=== PATIENT | female | born 1950 | race Caucasian/White ===

== ENCOUNTER 2020-07-21 13:40 | Observation (INO) | payer MEDICARE, SELFPAY ==
[2020-07-21] VITALS (8 sets, daily range): BP systolic 107–141; BP diastolic 79–95; PULSE 97–129; RESP 18–26; TEMP 36–36.7; O2SAT 93–96; BMI 52.2
--- NOTE | ~2020-07-21 | CT_ITS ---
EXAMINATION: CT abdomen pelvis w con INDICATION: Abdominal pain TECHNIQUE: Computed tomographic images of the abdomen and pelvis were obtained after the administrati on of 100 cc of Omnipaque 350 intravenous contrast. The dose-length product (DLP) was 1653.75 mGy-cm. Automated exposure control and iterative reconstruction technique were employed. COMPARISON: 03/23/2019 FINDINGS: Stable nodules of the visualized lung bases are consistent with old granulomatous disease. The heart size is normal. There is an ill-defined mass involving most of liver segment IV measuring u p to 7.1 x 7.4 cm in axial dimension and 9.9 cm in craniocaudal dimension. The most cranial portions of the mass are exophytic at the liver surface. The gallbladder is ill-defined and appears to be cont iguous with the mass. Portions of the mass appear to at least abut the distal stomach and first porti on of the duodenum. There is a moderate volume of ascites. Punctate calcifications in an otherwise no rmal spleen likely represent healed granulomatous disease. The pancreas and right adrenal gland are n ormal. There is chronic thickening of the left adrenal gland which maintains its adreniform shape. Hy poattenuating lesions in the kidneys, measuring up to 2 mm on the left, are too small to characterize but likely represent cysts. There is mild periportal lymphadenopathy. Colonic diverticulosis is pres ent without evidence of diverticulitis. There is no free intraperitoneal gas or evidence of bowel obs truction. There is moderate lumbar spondylosis. There is moderate osteoarthritis of the hips. IMPRESSION: 1. Large mass involving much of liver segment IV and contiguous with the gallbladder fossa, distal st omach, and first portion of the duodenum. Differential includes liver abscess versus malignancy, poss ibly arising from the gallbladder. 2. Moderate volume of ascites. These findings were discussed with KAUSHIK Sylvester in the Emergency Department at 1720 hours on 07/21. Reviewed, dictated and finalized at location A. IR TABLE OPERATOR IMPRESSION: 1. Large mass involving much of liver segment IV and contiguous with the gallbl adder fossa, distal stomach, and first portion of the duodenum. Differential in cludes liver abscess versus malignancy, possibly arising from the gallbladder. 2. Moderate volume of ascites. These findings were discussed with KAUSHIK Sylvester in the Emergency Departmen t at 1720 hours on 07/21/2020.
--- NOTE | ~2020-07-21 | XR_ITS ---
EXAMINATION: XR chest 1V portable INDICATION: Atrial fibrillation, COPD and hypertension TECHNIQUE: Portable AP chest at 2030 hours COMPARISON: 10/05/2017 FINDINGS: The lungs are free of acute opacities. There is no pleural effusion or pneumothorax. The ca rdiomediastinal silhouette is normal. There is moderate osteoarthritis of the shoulders. IMPRESSION: 1. No acute cardiopulmonary abnormality. Reviewed, dictated and finalized at location A. BLADE POLISHER
[2020-07-21 14:16] LABS: Basophils Absolute Auto 0.1 K/mm3 (0.0-0.1); Basophils Percent Auto 0.4 % (0.2-1.2); Eosinophils Absolute Auto 0.1 K/mm3 (0-0.3); Eosinophils Percent Auto 0.6 % (0-4.4); Hematocrit 45.8 % (37.0-47.0); Immature Granulocyte Absolute 0.07 K/mm3 (0.00-0.031); Immature Granulocyte Percent A 0.5 % (0-0.5); Lymphocytes Absolute Auto 1.09 K/mm3 (0.9-3.2); Lymphocytes Percent Auto 7.9 % (18.3-44.2); Mean Corpuscular HGB Conc 32.8 g/dl (32-36); Mean Corpuscular Volume 94.6 fl (80-100); Mean Platelet Volume 10.2 fl (7.4-10.4); Monocytes Percent Auto 6.9 % (2.6-8.5); Neutrophils Absolute Auto 11.6 K/mm3 (1.3-6.7); Neutrophils Percent Auto 83.7 % (45.5-73.1); Platelet Count Result 293 k/mm3 (150-375); Red Blood Count 4.84 M/mm3 (4.2-5.4); Red Cell Distribution Width 13.2 % (11.5-14.5); White Blood Count 13.9 K/mm3 (4.5-10.0)
[2020-07-21 14:25] LABS: Add Urine Microscopic? YES; Appearance Urine Clear (Clear); Bacteria Urine 4+ /hpf; Bilirubin Urine Negative (Negative); Blood Urine Negative (Negative); Color Urine Amber (Yellow); Glucose Urine UA Negative (Negative); Ketones Urine Negative (Negative); Leukocyte Esterase Ur Trace LEU/UL (Negative); Mucus Urine Heavy /lpf; Nitrate Urine Positive (Negative); Protein Urine 1+ mg/dL (Negative); Squamous Epithelial Cell Urine Few /hpf (Few)
[2020-07-21 14:26] LABS: Alanine Aminotransferase 16 U/L (4-35); Albumin Level 3.5 g/dL (3.5-5.1); Alkaline Phosphatase 138 U/L (38-126); Anion Gap 6 mmol/L (8-16); Aspartate Amino Transferase 28 U/L (14-36); Bilirubin,Total 0.7 mg/dL (0.2-1.3); Blood Urea Nitrogen 16 mg/dL (7-17); Carbon Dioxide 29 mmol/L (22-30); Chloride 98 mmol/L (98-107); Estimated CRCL calculation 86 ml/min; Estimated Glomerular Filt Rate > 60; Glucose 116 mg/dL (65-105); Lipase 47 U/L (23-300); Potassium 4.2 mmol/L (3.4-5.0); Sodium 133 mmol/L (137-145)
[2020-07-21 14:27] LABS: Lactic Acid Reflex 1.6 mmol/L (0.7-2.1); Specific Grav Ur 1.035 (1.001-1.035)
--- NOTE | 2020-07-21 14:41 | ECG_ITS ---
Measurements Intervals Reed Rate: 106 P: CT: 0 QRS: 19 QRSD: 107 T: 84 QT: 342 QTc: 454 Interpretive Statements ATRIAL FIBRILLATION WITH RAPID VENTRICULAR RESPONSE LOW QRS VOLTAGE IN PRECORDIAL LEADS BORDERLINE ST-T WAVE ABNORMALITY- HIGH LATERAL LEADS BASELINE ARTIFACT- I, III, AVR, AVL, AVF ABNORMAL ECG Electronically Signed On 07-21-2020 15:20:32 [employer] QUALITY MANAGER by Ghassan Driver D.O.
--- NOTE | 2020-07-21 14:45 | ED.ABDPAIN ---
HPI - Abdominal Pain General Chief Complaint: Abdominal Pain Stated Complaint: abd pain Time Seen by Provider: 07/21/20 13:51 Source: patient Mode of arrival: EMS Limitations: no limitations History of Present Illness HPI narrative: Patient is a 70-year-old female who presents to emergency department for evaluation of lower abdominal pain for the last couple of days patient notes pain with bowel movements and urination patient notes for the last several months intermittent right upper quadrant pain after having a gallstone removed at [facility] by Dr. Patino patient on arrival in no distress denies fever nausea vomiting shortness of breath or chest pain Related Data Home Medications Medication Instructions Recorded Confirmed multivitamin 1 tablet PO DAILY 06/01/19 04/06/20 vitamin E 400 unit capsule 400 unit PO DAILY 06/01/19 04/06/20 cholecalciferol (vitamin D3) 25 25 mcg PO DAILY 09/02/19 04/06/20 mcg (1,000 unit) tablet Allergies Allergy/AdvReac Type Severity Reaction Status Date / Time No Known Allergies Allergy Unknown Verified 07/21/20 13:43 Review of Systems Review of Systems: All systems reviewed & are unremarkable except as noted in HPI and below PMFSH Past Medical History Medical History (Updated 07/21/20 @ 20:17 by Kamaljit Zarate PA-C) Cholecystoduodenal fistula Cholecystoduodenal fistula Open wound of left lower leg Panniculitis Family History Family History Sibling Hypertension Family history of heart disease in male family member before age 55 Patient's sister is in good health Patient's brother is in good health Patient's brother is Diabetes mellitus Cerebrovascular accident Father Family history of heart disease in male family member before age 55 Patient's father is Acute myocardial infarction Mother Patient's mother is Family history of gastrointestinal disorder Other Family history of cardiovascular disease Social History Social History Smoking status: Former smoker Smoking end date: 07/21/85 Alcohol intake: never Exam Narrative: Exam Narrative: GENERAL: Well-appearing, morbidly obese, and in no acute distress. HEAD: Normocephalic, atraumatic. EYES: PERRLA and EOMI. ENT: Nares clear, no rhinorrhea or epistaxis. Mucous membranes moist. NECK: Supple. No adenopathy or masses. CHEST: Clear to auscultation. No respiratory distress. No wheezes rales or rhonchi HEART: Irregularly irregular rate and rhythm. No murmur heard. Normal peripheral pulses. ABDOMEN: Soft, generalized tenderness of the abdomen, nondistended EXTREMITIES: Normal range of motion. No edema. SKIN: Warm, dry, no rash. NEURO: No focal deficits. Alert and oriented x3. Cranial nerves II through XII grossly intact PSYCH: Normal mood and affect. Course Consultations Consultation #1: Discussed case with general surgery Dr. Gallagher who recommends transfer to a tertiary facility given the complexity of the findings Discussed case with hepatobiliary and medicine service at [facility] have agreed to accept the patient to the medical service Dr. Mirza Date: 07/21/20 Time: 19:00 Consultation #2: Discussed case with Dr. Ramirez the hospitalist who has agreed to accept the patient while waiting for transfer will be placed in the IMCU given her A. fib with RVR Date: 07/21/20 Time: 20:17 Vital Signs Vital signs: Vital Signs Temperature 98.0 F 07/21/20 13:36 Pulse Rate 118 H 07/21/20 13:36 Respiratory Rate 18 07/21/20 13:36 Blood Pressure 128/86 07/21/20 13:36 Pulse Oximetry 96 07/21/20 13:36 Temperature 98.0 F 07/21/20 13:36 Pulse Rate 117 H 07/21/20 19:36 Respiratory Rate 26 H 07/21/20 19:36 Blood Pressure 125/86 07/21/20 19:36 Pulse Oximetry 94 07/21/20 19:36 MDM - Abdominal Pain
[2020-07-21] MEDS: SODIUM CHLORIDE 0.9% IV 500 ML 999 ML IV CONT (15:44)
[2020-07-21] MEDS: MORPHINE SULFATE (*CRX) 4 MG/ML INJ IV PUSH (17:51)
--- NOTE | 2020-07-21 21:56 | ADMGEN ---
This patient, Lillie Dominguez, was admitted to IMU Room 201-01. Patient/family oriented to hospital policies and general routines including ID bracelet, bed and alarms, visiting hours, pain management, procedures, bathroom and other care routines, personal items, smoking policy, room service/diet, and visiting hours. Information on how to activate the Rapid Response Team has been discussed. Patient/Family are encouraged to report perceived risks to care and to ask questions if they do not understand what they are told or what they should do.
--- NOTE | 2020-07-21 23:17 | PM.IMHP ---
H&P: HPI History of Present Illness Date/Time: 07/21/20 23:17 Chief Complaint: Abdominal pain Narrative: Lillie Dominguez is a 70 year old female who lives at home with her . He primarily takes care of her. Patient is bedbound. 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 Patient had enterotomy with removal of large gallstone causing bowel obstruction expiratory laparotomy. Sukumar in his office about 10 weeks after the enterotomy with removal of large gallstone causing bowel obstruction exploratory laparotomy. She was feeling well there but was passing a lot of gas. The incision was healing well. Hospital with complaints of lower abdominal pain for the last couple days. The patient has pain with bowel movement and urination patient notes for the last several months she has had intermittent right upper quadrant pain./pelvis CT was read as large mass involving much of the liver segment IV and continuous with the gallbladder fossa, distal stomach, and 1st portion of the duodenum. Differential includes liver abscesses versus malignancy possibly rising from the gallbladder. Moderate volume of ascites. The ED provider notified the surgeon Dr durham on-call and suggested that the patient be transferred to tertiary care center. Patient was accepted by Dr. OSWALD. The case was discussed with Dr. patiño in the patient was admitted to IMU at [facility] awaiting transfer to [facility] the case had been discussed with hepatobiliary and medicine services at [facility]. Dr. oswald agreed to accept the patient. The patient was found to be AFib with RVR. She was started on IV fluids, morphine, And ceftriaxone. Was notified that patient now has a bed at [facility]. We are attempting to push the CT scan on to a disc. Sodium 133. White count 13.9. The patient is being treated for urinary tract infection as well. Patient was admitted observation on 07/21/2020. This is a short-stay summary as the patient is being transferred to [facility] now. Review of Systems Review of Systems: All systems reviewed & are unremarkable except as noted in HPI and below Constitutional: Constitutional: Reports as per HPI and Reports no additional constitutional complaints Eyes: Eyes: Reports as per HPI and Reports no additional eye complaints ENT: Reports system reviewed and no additional complaints, except as documented and Reports Normal hearing present Cardiovascular: Cardiovascular: Reports no additional cardiovascular complaints Respiratory: Respiratory: Reports no additional respiratory complaints and Reports no additional respiratory complaints Gastrointestinal: Gastrointestinal: Reports as per HPI and Reports no additional gastrointestinal complaints Musculoskeletal: Musculoskeletal: Reports no additional musculoskeletal complaints Integumentary/Breasts: Skin/Breast: Reports system reviewed and no additional complaints, except as docu and Reports as per HPI Neurologic: Reports system reviewed and no additional complaints, except as documented, Reports as per HPI and Reports Normal hearing present Psychiatric: Psychiatric: Reports no additional psychiatric complaints and Reports as per HPI Endocrine: Endocrine: Reports no additional endocrine complaints Hematologic/Lymphatic: Hematologic/Lymphatic: Reports no additional hematologic/lymphatic complaints Allergic/Immunologic: Allergic/Immunologic: Reports no additional allergic/immunologic complaints [facility] Past Medical History Medical History (Updated 07/21/20 @ 23:29 by Kaela Espinosa NP) Cholecystoduodenal fistula Cholecystoduodenal fistula Chronic obstructive pulmonary disease, unspecified Congestive heart failure Foot drop Open wound of left lower leg Panniculitis Surgical History Surgical History (Updated 07/21/20
[2020-07-21] MEDS: MORPHINE SULFATE (*CRX) 4 MG/ML INJ 2 MG IV PUSH (23:21)
[2020-07-21] MEDS: FAMOTIDINE 20 MG/2 ML VIAL IV PUSH (23:21)
[2020-07-22] VITALS: BP 126/76; PULSE 114; PULSE 125; RESP 20; TEMP 35.9; O2SAT 100
--- NOTE | 2020-07-22 11:16 | PM.TDS ---
Transfer Discharge Sum: Prov Provider Date of admission: 07/21/20 20:01 Primary care physician: Dwight Dumont MD Admitting clinician: Grabiel Ramirez MD DS: Admitting Diagnosis Admitting Diagnosis Admitting Diagnosis: abdominal pain DS: Discharge Diagnosis Discharge Diagnosis (1) Liver mass: Code(s): R16.0 - Hepatomegaly, not elsewhere classified Status: Acute Assessment and Plan: Patient is going to be transferred to [facility] hepatic biliary specialist. Patient is NPO at this time. She did have LR infusing but were going to stop that at this time because she has a history of congestive heart failure. However she is NPO. (2) Congestive heart failure: Code(s): I50.9 - Heart failure, unspecified Status: Chronic Assessment and Plan: No acute cardiopulmonary abnormality. The patient had been on Lasix at home. (3) Atrial fibrillation with rapid ventricular response: Code(s): I48.91 - Unspecified atrial fibrillation Status: Acute Assessment and Plan: The patient has been on flecainide. Heart rates in the lower 100s. (4) Urinary tract infection: Code(s): N39.0 - Urinary tract infection, site not specified Status: Acute Assessment and Plan: She was started on ceftriaxone. (5) Chronic obstructive pulmonary disease, unspecified: Qualifiers: COPD type: chronic bronchitis Chronic bronchitis type: simple Qualified Code(s): J41.0 - Simple chronic bronchitis Code(s): J44.9 - Chronic obstructive pulmonary disease, unspecified Status: Chronic Assessment and Plan: She is on nebulizers at home. (6) Foot drop: Code(s): M21.379 - Foot drop, unspecified foot Status: Acute Assessment and Plan: Patient is on bed rest at home. (7) Essential (primary) hypertension: Code(s): I10 - Essential (primary) hypertension Status: Acute Assessment and Plan: Her home medications have not been verified. Blood pressure gets too high prior to transfer. (8) Hypothyroidism, unspecified: Qualifiers: Hypothyroidism type: acquired Qualified Code(s): E03.9 - Hypothyroidism, unspecified Code(s): E03.9 - Hypothyroidism, unspecified Status: Chronic Assessment and Plan: Patient is NPO at this time. May consider giving her IV levothyroxine. (9) Other hyperlipidemia: Code(s): E78.49 - Other hyperlipidemia Status: Acute Assessment and Plan: Patient is obese I am not sure she is on any medication for her hyperlipidemia. Transfer Discharge Sum: Med Medications Active and Home Medications: Home Medications multivitamin 1 tablet PO DAILY 06/01/19 [History Confirmed 07/22/20] vitamin E 400 unit capsule 400 unit PO DAILY 06/01/19 [History Confirmed 07/22/20] cholecalciferol (vitamin D3) 25 mcg (1,000 unit) tablet 25 mcg PO DAILY 09/02/19 [History Confirmed 07/22/20] ipratropium 0.5 mg-albuterol 3 mg (2.5 mg base)/3 mL nebulization soln 3 ml INHALATION Q4H PRN #90 ml 09/03/19 [Rx Confirmed 07/22/20] furosemide 40 mg tablet 40 mg PO QAM #90 tablet 11/04/19 [Rx Confirmed 07/22/20] levothyroxine 100 mcg tablet 100 mcg PO DAILY #90 tablet 01/06/20 [Rx Confirmed 07/22/20] flecainide 50 mg tablet 50 mg PO Q12H #180 tablet 03/28/20 [Rx Confirmed 07/22/20] Transfer Discharge Sum: Hosp Hospital Course Hospital course: Lillie Dominguez is a 70 year old female with history of abdomen surgery s/p large gallstone removal, patient being transferred to [facility] for further evaluation by Dr. Mirza. patient is clinically stable, will transfer the patient. Time Spent with Patient Time attestation: Total time spent providing and/or coordinating transfer services: Exam Narrative: Exam Narrative: Morbidly obese Patient is comfortable, NAD HEENT: eyes are clear and none icteric LUNGS:CTA HEART: RR S1S2 ABD: BS+, Soft and nontender Lower extremities:
== END 2020-07-22 00:55 | disposition home or self-care (01) ==
LOC: ANHED 20:08 → ANHIMU 07-22 02:27
PROVIDERS: Emergency Medicine Emergency Medical Services; Admitting Provider Family Medicine; Emergency Provider Emergency Medicine; PCP Internal Medicine; Visit Provider Family Medicine
DX: R16.0 Hepatomegaly, not elsewhere classified (principal); K76.9 Liver disease, unspecified; N39.0 Urinary tract infection, site not specified; I48.91 Unspecified atrial fibrillation; R18.8 Other ascites; J44.9 Chronic obstructive pulmonary disease, unspecified; I50.9 Heart failure, unspecified; M21.379 Foot drop, unspecified foot; E03.9 Hypothyroidism, unspecified; E78.5 Hyperlipidemia, unspecified; Z87.891 Personal history of nicotine dependence
CPT/HCPCS: 36415; 51701; 71045; 74177; 80053; 81001; 83605; 83690; 85025; 93005; 96365; 96375; 96376; 99285; G0378; J0696; J2270; J7040; Q9967